=== PATIENT | female | born 1985 | race Caucasian/White ===

== ENCOUNTER 2018-12-31 13:12 | Emergency (ER) | payer SELFPAY ==
[~2018-12-31] VITALS: Ht 162.6 cm; Wt 59.0 kg
--- NOTE | 2018-12-31 13:12 | NUR ---
PATIENT BIB [facility] TO BED 5
[2018-12-31 13:20] VITALS: BP 100/60
--- NOTE | 2018-12-31 13:20 | NUR ---
PATIENT PRESENTS TO ED WITH [facility] FOR PREBOOK . PD STATES HERE FOR CLEARANCE AND PSYCH. DENIES N/V/D; SKIN IS PINK/WARM/DRY; AAOX4 WITH EVEN AND STEADY GAIT; LUNGS CLEAR BL; HR EVEN AND REGULAR; PT DENIES ANY FEVER, CP, SOB, OR COUGH AT THIS TIME; PATIENT STATES PAIN OF 0/10 AT THIS TIME; VSS; PATIENT POSITIONED FOR COMFORT; HOB ELEVATED; BEDRAILS UP X2; BED DOWN. ER MD MADE AWARE OF PT STATUS.
[2018-12-31 13:44] VITALS: BP 105/62
--- NOTE | 2018-12-31 13:44 | NUR ---
Patient discharged with v/s stable. Written and verbal after care instructions given and explained. Patient verbalized understanding. Police with in custody. All questions addressed prior to discharge. Advised to follow up with PMD.
== END 2018-12-31 13:44 | disposition home or self-care (01) ==
LOC: MED 13:12
DX: Z02.89 Encounter for other administrative examinations (principal); F17.210 Nicotine dependence, cigarettes, uncomplicated; Z71.6 Tobacco abuse counseling
CPT/HCPCS: 99283